=== PATIENT | male | born 1980 | race Caucasian/White ===

== ENCOUNTER 2017-05-30 12:17 | Emergency (ER) | payer MEDICARE, OTHER ==
[~2017-05-30] VITALS: Ht 170.2 cm; Wt 72.7 kg
[~2017-05-30 12:17] MED LIST: BACTDS PO; CEPH-443 PO; ENOX80DI2 SC; IBUP-1542 PO; OXYC-279 PO
[2017-05-30 12:22] VITALS: Ht 170.2 cm; Wt 72.7 kg
--- NOTE | 2017-05-30 12:22 | QN ---
Documentation Comment Patient seen immediately upon arrival the patient arrived by ambulance. His chief complaint was for seizure. He is no longer having seizure activity. Medical screening exam was initiated. The patient will be seen by another provider. KELSEY BOATENG MD May 30, 2017 12:22
[2017-05-30] MEDS ORDERED: LEVETIRACETAM 1000 MG (PMX) 100 ML IVPB STA (12:35)
[2017-05-30 12:56] LABS: BASOPHILS % 0.7 % (0.0-2.0); EOSINOPHILS # 0.1 10^3/ul (0.0-0.5); EOSINOPHILS % 1.3 % (0.0-7.0); HEMATOCRIT 41.9 % (42.0-52.0); HEMOGLOBIN 14.2 g/dl (14.0-18.0); LYMPHOCYTES # 1.1 10^3/ul (0.8-2.9); LYMPHOCYTES % 18.8 % (15.0-51.0); MEAN CORPUSCULAR HEMOGLOBIN 33.3 pg (29.0-33.0); MEAN CORPUSCULAR HGB CONC 33.9 g/dl (32.0-37.0); MEAN CORPUSCULAR VOLUME 98.1 fl (82.0-101.0); MEAN PLATELET VOLUME 9.7 fl (7.4-10.4); MONOCYTE # 0.6 10^3/ul (0.3-0.9); MONOCYTES % 10.2 % (0.0-11.0); NEUTROPHIL # 3.8 10^3/ul (1.6-7.5); NEUTROPHILS % 67.7 % (39.0-77.0); PLATELET COUNT 256 10^3/UL (140-415); RED BLOOD COUNT 4.27 10^6/ul (4.70-6.10); RED CELL DISTRIBUTION WIDTH 13.2 % (11.5-14.5); WHITE BLOOD COUNT 5.6 10^3/ul (4.8-10.8)
[2017-05-30 13:00] VITALS: BP 140/71; PULSE 71; RESP 18
[2017-05-30 13:29] LABS: CALCIUM 9.7 mg/dl (8.4-10.2); CREATININE 1.36 mg/dl (0.61-1.24); POTASSIUM 4.1 mmol/L (3.5-5.1)
[2017-05-30] MEDS ORDERED: ASPI81TA3 PO (14:06)
[2017-05-30] MEDS ORDERED: DIVA500T7 PO (14:06)
[2017-05-30] MEDS ORDERED: SOD CHLORIDE 0.9% 1,000 ML IV ONE (14:30)
--- NOTE | 2017-05-30 14:41 | ERD ---
ER Documentation Chief Complaint Date/Time DATE: 05/30/17 TIME: 14:38 Chief Complaint BIB R81 S/P SEIZURE AND LAC TO CHIN. HX SEIZURES ON DEPAKOTE HPI This 36-year-old male presents for a seizure was witnessed by bystanders with a small laceration to the chin. Is currently taking Depakote for seizures. He has had seizures approximately every month this year except for last month when he did not have any seizures. He has an appointment on Monday for an MRI. He was supposed to have laboratories obtained for his kidney function is the intended use gadolinium contrast. States that he gets seizures after he drinks usually which he drank the night before. He states that when he smokes marijuana he does not have seizures. He smoked marijuana this morning. ROS All systems reviewed and are negative except as per history of present illness. Medications Home Meds Reported Medications Aspirin* (Aspirin* Chew) 81 Mg Tab.chew, 81 MG PO DAILY, TAB.CHEW 05/30/17 Divalproex Sodium* (Depakote*) 500 Mg Tablet.dr, 500 MG PO TID, #90 TAB 05/30/17 Discontinued Reported Medications Enoxaparin Sodium (Enoxaparin Sodium) 80 Mg/0.8 Ml Disp.syrin, 70 MG SC Q12, SYR 05/12/15 Discontinued Scripts Oxycodone HCl/Acetaminophen (Percocet 5-325 mg Tablet) 1 Each Tablet, 1 EACH PO Q6, #20 TAB Prov:MIKEY JASSO NP 05/10/16 Ibuprofen* (Motrin*) 600 Mg Tab, 600 MG PO Q6H Y for PAIN AND OR ELEVATED TEMP, #30 TAB Prov:MIKEY JASSO NP 05/10/16 Sulfamethoxazole-Trimethoprim* (Bactrim* DS) 800-160 Mg Tab, 1 TAB PO BID for 10 Days, TAB Prov:CINTIA GILLESPIE 05/12/15 Cephalexin* (Keflex*) 500 Mg Capsule, 500 MG PO QID for 10 Days, CAP Prov:JOSE MIGUELELIZABETH BAHENAA 05/12/15 Allergies Allergies: Coded Allergies: No Known Allergy (Unverified , 05/30/17) PMhx/Soc History of Surgery: Yes (LAPAROTOMY, R testicle) Anesthesia Reaction: No Hx Neurological Disorder: No Hx Respiratory Disorders: No Hx Cardiac Disorders: No Hx Psychiatric Problems: No Hx Miscellaneous Medical Probl: Yes (DVT, CA SURVIVOR, SZ DISORDER) Hx Alcohol Use: Yes (OCCASSIONAL) Hx Substance Use: Yes (MARIJUANA) Hx Tobacco Use: Yes Smoking Status: Current some day smoker Physical Exam Vitals Vital Signs Date Time Temp Pulse Resp B/P Pulse Ox O2 Delivery O2 Flow Rate FiO2 05/30/17 12:22 97.9 111 20 129/81 99 Physical Exam Const: [] No distress Head: Atraumatic Eyes: Normal Conjunctiva EOMI, PRL ENT: Normal External Ears, Nose and Mouth. Tiny half centimeter laceration to left chin with no current active bleeding. Means of the mouth moist with no tongue laceration. Neck: Full range of motion..~ No meningismus. Resp: Clear to auscultation bilaterally Cardio: Regular rate and rhythm, no murmurs Abd: Soft, non tender, non distended. Normal bowel sounds Skin: No petechiae or rashes Back: No midline or flank tenderness Ext: No cyanosis, or edema Neur: Awake and alert oriented 3, no focal deficit cranial 2 through 12 intact, no cerebellar deficits. Psych: Normal Mood and Affect Result Diagram: 05/30/17 1250 05/30/17 1250 Results 24 hrs Laboratory Tests Test 05/30/17 12:50 White Blood Count 5.610^3/ul Red Blood Count 4.2710^6/ul Hemoglobin 14.2g/dl Hematocrit 41.9% Mean Corpuscular Volume 98.1fl Mean Corpuscular Hemoglobin 33.3pg Mean Corpuscular Hemoglobin Concent 33.9g/dl Red Cell Distribution Width 13.2% Platelet Count 27756^3/UL Mean Platelet Volume 9.7fl Neutrophils % 67.7% Lymphocytes % 18.8% Monocytes % 10.2% Eosinophils % 1.3% Basophils % 0.7% Nucleated Red Blood Cells % 0.0/100WBC Neutrophils # 3.810^3/ul Lymphocytes # 1.110^3/ul Monocytes # 0.610^3/ul Eosinophils # 0.110^3/ul Basophils # 0.010^3/ul Nucleated Red Blood Cells # 0.010^3/ul Sodium Level 143mmol/L Potassium Level 4.1mmol/L Chloride Level 104mmol/L Carbon Dioxide Level 23mmol/L Anion Gap 20 Blood Urea Nitrogen 24mg/dl Creatinine 1.36mg/dl Glucose Level 96mg/dl Calcium Level 9.7mg/dl Valproic Acid (Depakene) Level 109ug/ml Current Medications Medications (Trade) Dose Ordered Sig/Papa Route PRN Reason Start Time Stop Time Status Last Admin Dose Admin Levetiracetam 100 ml @ 400 mls/hr ONCE STAT IVPB 05/30/17 12:35 05/30/17 12:49 DC 05/30/17 13:07 Sodium Chloride (NS) 1,000 ml @ 1,000 mls/hr Q1H ONCE IV 05/30/17 14:30 05/30/17 15:29 Procedures/MDM Patient with seizure while therapy pubic on Depakote. Supratherapeutic. Given a liter of fluid and loaded with a gram of Keppra while in the emergency room to prevent further seizures. Printed his laboratories for him including supratherapeutic Depakote and renal insufficiency to take with him to his doctor appointment on Monday. Instructed him to see primary care doctor or neurologist in the next couple of days given return precautions to the ER. Departure Diagnosis: Primary Impression: Seizure disorder Condition: Stable Patient Instructions: Seizure, Recurrent [Adult] Additional Instructions: Call your primary care doctor or neurolgist TOMORROW for an appointment during the next 1-2 days.See the doctor sooner or return here if your condition worsens before your appointment time. ROBIN OROPEZA DO May 30, 2017 14:41
== END 2017-05-30 18:26 | disposition home or self-care (01) ==
LOC: E/R 12:17
DX: G40.909 Epilepsy, unspecified, not intractable, without status epilepticus (principal); F17.210 Nicotine dependence, cigarettes, uncomplicated; R40.2142 Coma scale, eyes open, spontaneous, at arrival to emergency department; R40.2252 Coma scale, best verbal response, oriented, at arrival to emergency department; R40.2362 Coma scale, best motor response, obeys commands, at arrival to emergency department; Z79.82 Long term (current) use of aspirin
CPT/HCPCS: 36415; 80048; 80164; 85025; 96374; 99284; J1953; J7030